=== PATIENT | female | born 1985 | race Caucasian/White ===

== ENCOUNTER 2017-10-11 16:52 | Emergency (ER) | payer BC ==
[2017-10-11] MEDS ORDERED: Ketorolac INJ* 30 MG/ML 1 ML VIAL IV ONE (20:46)
[2017-10-11] MEDS ORDERED: NS 0.9% 1000 ML* 1,000 ML IV ONE (20:46)
[2017-10-11 21:10] LABS: Hematocrit 39 % (35-47); Hemoglobin 13.1 g/dl (12.0-16.0); Mean Corpuscular HGB Conc 34 g/dl (31-36); Mean Corpuscular Hemoglobin 32 pg (27-31); Mean Corpuscular Volume 94 fL (80-97); Mean Platelet Volume 9 um3 (7.4-10.4); Red Blood Count 4.12 10^6/ul (4.0-5.4); Red Cell Distribution Width 12 % (10.5-15); White Blood Count 6.7 10^3/ul (3.5-10.8)
[2017-10-11 21:24] LABS: ALT 15 U/L (7-52); AST 17 U/L (13-39); Albumin 4.4 g/dL (3.2-5.2); Alkaline Phosphatase 61 U/L (34-104); Anion Gap 7 mmol/L (2-11); BUN/Creatinine Ratio 15.8 (8-20); Blood Urea Nitrogen 12 mg/dL (6-24); CO2 Carbon Dioxide 26 mmol/L (22-32); Calcium 9.6 mg/dL (8.6-10.3); Chloride 102 mmol/L (101-111); Creatine Kinase 64 U/L (10-223); EGFR Non-African American 87.1 (>60); Globulin 2.9 g/dL (2-4); Glucose 84 mg/dL (70-100); Lipase 32 U/L (11.0-82.0); Magnesium 1.8 mg/dL (1.9-2.7); Potassium 3.7 mmol/L (3.5-5.0); Sodium 135 mmol/L (133-145); Total Protein 7.3 g/dL (6.4-8.9)
[2017-10-11] MEDS ORDERED: Iohexol 350* (CONTRAST) 500 ML MDV IV ONE (21:35)
[2017-10-11 21:52] LABS: TSH (Thyroid Stimulating Horm) 3.14 mcIU/mL (0.34-5.60)
--- NOTE | 2017-10-11 22:16 | RAD ---
INDICATION: LEFT chest pain. History of Lyme disease. Assess for pulmonary embolism. COMPARISON: None. TECHNIQUE: Multidetector CT images were obtained from the lung apices to the upper abdomen with 62 mL Omnipaque 350 IV contrast. Pulmonary angiogram protocol. Multiplanar reformation including with maximum intensity projection. REPORT: Clear lungs and pleural spaces. Negative for pneumothorax. Negative for thoracic lymphadenopathy. Negative for cardiomegaly or pericardial effusion. Normal diameter thoracic aorta. No filling defects are identified from the main to the subsegmental pulmonary arteries to indicate presence of a pulmonary embolism. Unremarkable Limited images through the upper abdomen. Negative for suspicious thoracic osseous lesions or fractures. IMPRESSION: No evidence for pulmonary embolism or other acute intrathoracic pathology.
[2017-10-11 23:26] VITALS: BP 132/79
--- NOTE | 2017-10-12 00:34 | ED ---
Gilbert De La Vega Nikita, scribed for Oscar Hunt MD on 10/11/17 at 2041 . HPI Chest Pain - HPI Summary HPI Summary: This patient is a 32 year old F presenting to ED with a chief complaint of L- sided CP since 1 month ago. The CC is described as non-radiating, intermittent, stabbing, and has worsened since yesterday. Pt reports she can feel her heart hitting her finger. The patient rates the pain 9/10 in severity. Symptoms aggravated by nothing. Symptoms alleviated by nothing. Patient reports SOB and fever (intermittent). Patient denies rash. - History of Current Complaint Chief Complaint: EDChestWallPain Time Seen by Provider: 10/11/17 20:27 Hx Obtained From: Patient Onset/Duration: Started Weeks Ago, Still Present Timing: Intermittent, Lasting Weeks Current Severity: Severe Pain Intensity: 9 Pain Scale Used: 0-10 Numeric Chest Pain Location: Discrete at: - L-sided CP Chest Pain Radiates: No Character: Sharp/Stabbing Aggravating Factor(s): Nothing Alleviating Factor(s): Nothing Associated Signs and Symptoms: Positive: Other: - Patient reports SOB and fever (intermittent). Patient denies rash. 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, Lyme disease Endocrine/Hematology History: Denies: Hx Diabetes Cardiovascular History: Denies: Hx Coronary Artery Disease, Hx Hypertension Infectious Disease History: No Infectious Disease History: Denies: Traveled Outside the [place] in Last 30 Days - Family History Known Family History: Positive: Cardiac Disease, Hypertension, Other Family History: stroke - Social History Alcohol Use: Occasionally Substance Use Type: Reports: None Smoking Status (MU): Never Smoked Tobacco Review of Systems Positive: Fever Positive: Chest Pain - L-sided Positive: Shortness Of Breath Negative: Rash All Other Systems Reviewed And Are Negative: Yes Physical Exam Triage Information Reviewed: Yes Vital Signs On Initial Exam: Initial Vitals Temp Pulse Resp BP Pulse Ox 98.6 F 78 18 129/93 99 10/11/17 16:57 10/11/17 16:57 10/11/17 16:57 10/11/17 16:57 10/11/17 16:57 Vital Signs Reviewed: Yes Appearance: Positive: Well-Appearing, No Pain Distress Skin: Positive: Warm, Skin Color Reflects Adequate Perfusion, Dry Head/Face: Positive: Normal Head/Face Inspection Eyes: Positive: EOMI, JAI ENT: Positive: Normal ENT inspection Neck: Positive: Supple, Nontender Respiratory/Lung Sounds: Positive: Clear to Auscultation, Breath Sounds Present Cardiovascular: Positive: RRR Abdomen Description: Positive: Nontender, Soft Bowel Sounds: Positive: Present Musculoskeletal: Positive: Normal, Strength/ROM Intact Neurological: Positive: Normal, Sensory/Motor Intact, Alert, Oriented to Person Place, Time Psychiatric: Positive: Affect/Mood Appropriate - [place] Coma Scale Coma Scale Total: 15 Diagnostics - Vital Signs Vital Signs Temp Pulse Resp BP Pulse Ox 10/11/17 19:02 98.1 F 70 18 135/76 100 10/11/17 16:57 98.6 F 78 18 129/93 99 - Laboratory Lab Results: Lab Results 10/11/17 10/11/17 10/11/17 Range/Units 20:59 20:59 20:59 WBC 6.7 (3.5-10.8) 10^3/ul RBC 4.12 (4.0-5.4) 10^6/ul Hgb 13.1 (12.0-16.0) g/dl Hct 39 (35-47) % MCV 94 (80-97) fL MCH 32 H (27-31) pg MCHC 34 (31-36) g/dl RDW 12 (10.5-15) % Plt Count 259 (150-450) 10^3/ul MPV 9 (7.4-10.4) um3 Neut % (Auto) 50.9 (38-83) % Lymph % (Auto) 35.7 (25-47) % [place] % (Auto) 8.1 (1-9) % Eos % (Auto) 4.4 (0-6) % Baso % (Auto) 0.9 (0-2) % Absolute Neuts (auto) 3.4 (1.5-7.7) 10^3/ul Absolute Lymphs (auto) 2.4 (1.0-4.8) 10^3/ul Absolute Monos (auto) 0.5 (0-0.8) 10^3/ul Absolute Eos (auto) 0.3 (0-0.6) 10^3/ul Absolute Basos (auto) 0.1 (0-0.2) 10^3/ul Absolute Nucleated RBC 0 10^3/ul Nucleated RBC % 0 INR (Anticoag Therapy) 0.90 (0.89-1.11) APTT 27.2 (26.0-36.3) seconds Sodium 135 (133-145) mmol/L Potassium 3.7 (3.5-5.0) mmol/L Chloride 102 (101-111) mmol/L Carbon Dioxide 26 (22-32) mmol/L Anion Gap 7 (2-11) mmol/L BUN 12 (6-24) mg/dL Creatinine 0.76 (0.51-0.95) mg/dL Est GFR ( Amer) 112.0 (>60) Est GFR (Non-Af Amer) 87.1 (>60) BUN/Creatinine Ratio 15.8 (8-20) Glucose 84 (70-100) mg/dL Lactic Acid (0.5-2.0) mmol/L Calcium 9.6 (8.6-10.3) mg/dL Magnesium 1.8 L (1.9-2.7) mg/dL Total Bilirubin 0.50 (0.2-1.0) mg/dL AST 17 (13-39) U/L ALT 15 (7-52) U/L Alkaline Phosphatase 61 (34-104) U/L Total Creatine Kinase 64 (10-223) U/L CK-MB (CK-2) 0.8 (0.6-6.3) ng/mL Troponin I 0.00 (<0.04) ng/mL C-Reactive Protein 1.00 (< 5.00) mg/L Total Protein 7.3 (6.4-8.9) g/dL Albumin 4.4 (3.2-5.2) g/dL Globulin 2.9 (2-4) g/dL Albumin/Globulin Ratio 1.5 (1-3) Lipase 32 (11.0-82.0) U/L TSH 3.14 (0.34-5.60) mcIU/mL Beta HCG, Quant < 0.60 mIU/mL 10/11/17 Range/Units 20:59 WBC (3.5-10.8) 10^3/ul RBC (4.0-5.4) 10^6/ul Hgb (12.0-16.0) g/dl Hct (35-47) % MCV (80-97) fL MCH (27-31) pg MCHC (31-36) g/dl RDW (10.5-15) % Plt Count (150-450) 10^3/ul MPV (7.4-10.4) um3 Neut % (Auto) (38-83) % Lymph % (Auto) (25-47) % [place] % (Auto) (1-9) % Eos % (Auto) (0-6) % Baso % (Auto) (0-2) % Absolute Neuts (auto) (1.5-7.7) 10^3/ul Absolute Lymphs (auto) (1.0-4.8) 10^3/ul Absolute Monos (auto) (0-0.8) 10^3/ul Absolute Eos (auto) (0-0.6) 10^3/ul Absolute Basos (auto) (0-0.2) 10^3/ul Absolute Nucleated RBC 10^3/ul Nucleated RBC % INR (Anticoag Therapy) (0.89-1.11) APTT (26.0-36.3) seconds Sodium (133-145) mmol/L Potassium (3.5-5.0) mmol/L Chloride (101-111) mmol/L Carbon Dioxide (22-32) mmol/L Anion Gap (2-11) mmol/L BUN (6-24) mg/dL Creatinine (0.51-0.95) mg/dL Est GFR ( Amer) (>60) Est GFR (Non-Af Amer) (>60) BUN/Creatinine Ratio (8-20) Glucose (70-100) mg/dL Lactic Acid 0.7 (0.5-2.0) mmol/L Calcium (8.6-10.3) mg/dL Magnesium (1.9-2.7) mg/dL Total Bilirubin (0.2-1.0) mg/dL AST (13-39) U/L ALT (7-52) U/L Alkaline Phosphatase (34-104) U/L Total Creatine Kinase (10-223) U/L CK-MB (CK-2) (0.6-6.3) ng/mL Troponin I (<0.04) ng/mL C-Reactive Protein (< 5.00) mg/L Total Protein (6.4-8.9) g/dL Albumin (3.2-5.2) g/dL Globulin (2-4) g/dL Albumin/Globulin Ratio (1-3) Lipase (11.0-82.0) U/L TSH (0.34-5.60) mcIU/mL Beta HCG, Quant mIU/mL Result Diagrams: 10/11/17 20:59 10/11/17 20:59 Lab Statement: Any lab studies that have been ordered have been reviewed, and results considered in the medical decision making process. - CT Chest/Thorax CT CT Interpretation Completed By: Radiologist - No evidence for pulmonary embolism or other acute intrathoracic pathology. ED physician has reviewed this radiology report and agrees. - EKG 1710 Cardiac Rate: NL EKG Rhythm: Sinus Rhythm - [address] Segment: Normal Ectopy: None Re-Evaluation - Re-Evaluation First Eval Re-Evaluation Time: 22:53 Change: Unchanged Comment: Discussed results and discharge plan with pt. Chest Pain Course/Dx - Course Assessment/Plan: This patient is a 32 year old F presenting to ED with a chief complaint of L-sided CP since 1 month ago. The CC is described as non-radiating , intermittent, stabbing, and has worsened since yesterday. Pt reports she can feel her heart hitting her finger. The patient rates the pain 9/10 in severity. Symptoms aggravated by nothing. Symptoms alleviated by nothing. Patient reports SOB and fever (intermittent). Patient denies rash. BP noted and advised to follow up with PCP. Medications reviewed. Allergies noted. Chest/ thorax CT reveals no evidence for pulmonary embolism or other acute intrathoracic pathology. ED physician has reviewed this radiology report and agrees. EKG reveals NSR at 76 bpm, nml ST, and no ectopy. In the ED course, pt was given Toradol and fluids. Pt will be discharged. Pt is agreeable with this plan. DISCUSSED RESULTS WITH PATIENT/. F/U PMD; RETURN IF WORSE. - Diagnoses Provider Diagnoses: Chest pain Discharge - Discharge Plan Condition: Stable Disposition: HOME Patient Education Materials: Chest Pain (ED) Referrals: Doris Abbott MD [Primary Care Provider] - Additional Instructions: FOLLOW UP WITH YOUR DOCTOR. RETURN TO THE EMERGENCY DEPARTMENT FOR ANY WORSENING OF YOUR CONDITION; PAIN, SHORTNESS OF BREATH, FEVER, YOU FEEL ILL OR QUESTIONS OR CONCERNS. The documentation as recorded by the Gilbert sandoval Nikita accurately reflects the service I personally performed and the decisions made by me, Oscar Hunt MD.
== END 2017-10-11 23:25 | disposition home or self-care (01) ==
LOC: ED 16:52
DX: R07.9 Chest pain, unspecified (principal); R06.02 Shortness of breath; Z88.8 Allergy status to other drugs, medicaments and biological substances; Z88.2 Allergy status to sulfonamides; R50.9 Fever, unspecified; Z32.02 Encounter for pregnancy test, result negative
CPT/HCPCS: 36415; 71275; 80053; 82550; 82553; 83605; 83690; 83735; 84443; 84484; 84702; 85025; 85610; 85730; 86140; 93005; 96374; 99284; J1885; Q9967